=== PATIENT | male | born 1995 | race African-American/Black ===

== ENCOUNTER 2019-12-04 21:53 | Emergency (ER) | payer OTHER ==
[~2019-12-04] VITALS: Ht 182.9 cm; Wt 79.5 kg
[2019-12-04] MEDS ORDERED: BACITRACIN 0.9 GM PACKET OINTMENT TP ONE (22:15)
[2019-12-04] MEDS ORDERED: PERTUSS(ACELL),DIPH,TET VAC/PF 0.5 ML VIAL IM ONE (22:15)
[2019-12-04] MEDS ORDERED: RISP.5 PO (22:18)
[2019-12-04 22:43] LABS: GLUCOSE,POINT OF CARE 104 MG/DL (70-110)
[2019-12-04] MEDS ORDERED: NALOXONE HCL 1 MG/ML 2 ML SYG IVP ONE (22:45)
[2019-12-04 22:54] LABS: BASOPHILS % (AUTO) 1.9 % (0.0-2.0); EOSINOPHILS % (AUTO) 1.9 % (1.0-6.0); HEMATOCRIT 48.4 % (41-53); HEMOGLOBIN 16.3 g/dL (13.5-17.5); LYMPHOCYTES # (AUTO) 1.3 K/uL (1.0-4.8); LYMPHOCYTES % (AUTO) 37.6 % (22.0-44.0); MEAN CORPUSCULAR HEMOGLOBIN 28.4 pg (26.0-34.0); MEAN CORPUSCULAR HGB CONC 33.6 G/dL (31.0-37.0); MEAN CORPUSCULAR VOLUME 85 fL (80-100); MONOCYTES # (AUTO) 0.2 K/uL (0.1-1.0); MONOCYTES % (AUTO) 5.1 % (2.0-9.0); NEUTROPHILS # (AUTO) 1.9 K/uL (1.8-7.7); NEUTROPHILS % (AUTO) 53.5 % (40.0-70.0); PLATELET COUNT (AUTO) 235 K/uL (150-450); RED BLOOD CELL COUNT(AUTO) 5.72 MIL/uL (4.50-5.90); RED CELL DISTRIBUTION WIDTH 12.6 % (11.5-14.5)
[2019-12-04 22:57] LABS: AMPHET/METH SCREEN,URINE NEGATIVE (NEGATIVE); BARBITURATE SCREEN, URINE NEGATIVE (NEGATIVE); BENZODIAZEPINES SCREEN,URINE NEGATIVE (NEGATIVE); CANNABINOID SCREEN,URINE POSITIVE (NEGATIVE); COCAINE SCREEN,URINE NEGATIVE (NEGATIVE); METHADONE SCREEN, URINE NEGATIVE (NEGATIVE); OPIATE SCREEN,URINE NEGATIVE (NEGATIVE)
[2019-12-04 22:59] LABS: ANION GAP 13 mmol/L (8-16); CALCIUM, TOTAL 9.4 mg/dL (8.8-10.5); CARBON DIOXIDE 27 mmol/L (22-29); CHLORIDE 102 mmol/L (98-107); GLOMERULAR FILTR. RATE CALC > 60 mL/min (>60); GLUCOSE,RANDOM 102 mg/dL (70-110); POTASSIUM 3.4 mmol/L (3.5-5.1); SODIUM SERUM 142 mmol/L (136-145); UREA NITROGEN, BLOOD 8 mg/dL (7-18)
[2019-12-04 23:05] LABS: PHENCYCLIDINE SCREEN,URINE NEGATIVE (NEGATIVE)
[2019-12-04 23:09] LABS: SALICYLATE 0.5 mg/dL (2.8-20.0)
[2019-12-04 23:23] LABS: APPEARANCE,URINE CLEAR (CLEAR); BILIRUBIN,URINE NEGATIVE (NEGATIVE); GLUCOSE, URINE (UA) NEGATIVE (NEGATIVE); KETONES,URINE NEGATIVE (NEGATIVE); LEUKOCYTE ESTERASE ,URINE NEGATIVE (NEGATIVE); NITRATE,URINE NEGATIVE (NEGATIVE); OCCULT BLOOD,URINE NEGATIVE (NEGATIVE); PROTEIN,URINE NEGATIVE (NEGATIVE); UROBILINOGEN,URINE 0.2 mg/dL (<=1.0)
[2019-12-04 23:30] LABS: ALANINE AMINOTRANSFERASE 24 U/L (12-78); ALBUMIN 4.6 g/dL (3.4-5.0); ALKALINE PHOSPHATASE 55 U/L (46-116); ASPARTATE AMINOTRANSFERASE 23 U/L (15-37); BILIRUBIN,TOTAL 0.8 mg/dL (0.1-1.0); CREATINE KINASE, TOTAL ONLY 239 U/L (39-308); TOTAL PROTEIN, SERUM 8.1 g/dL (6.4-8.2)
[2019-12-04 23:43] LABS: BACTERIA,URINE None Seen /HPF (None Seen); RBC,URINE None Seen /HPF (0-2); WBC,URINE None Seen /HPF (0-5)
[2019-12-04 23:44] LABS: RENAL EPITHELIAL CELLS,URINE Rare /LPF (None Seen); SQUAMOUS EPITHELIAL CELL,UR Rare /LPF (None Seen)
[2019-12-04 23:47] LABS: ACETAMINOPHEN < 2 mcg/mL (10-30)
[2019-12-05 02:40] VITALS: BP 127/72
== END 2019-12-05 02:45 | disposition home or self-care (01) ==
LOC: EMS 21:53 → EDBD 21:53 → EMS 12-05 02:45
DX: S80.211A Abrasion, right knee, initial encounter (principal); S80.212A Abrasion, left knee, initial encounter; F10.129 Alcohol abuse with intoxication, unspecified; R41.82 Altered mental status, unspecified; F20.9 Schizophrenia, unspecified; Y35.811A Legal intervention involving manhandling, law enforcement official injured, initial encounter; Y93.89 Activity, other specified; Y92.481 Parking lot as the place of occurrence of the external cause; Y99.8 Other external cause status
CPT/HCPCS: 36415; 70450; 71045; 80053; 80307; 81001; 82550; 82962; 85025; 90471; 90715; 93005; 96374; 99291; G0480; 51702; G0481